=== PATIENT | female | born 2000 | race Caucasian/White ===

== ENCOUNTER → 2021-03-19 10:21 | Outpatient (CLI) | payer MEDICAID, SELFPAY ==
[2021-03-03 14:13] VITALS: BMI 35.7
--- NOTE | 2021-03-20 16:37 | PFTCOMP ---
COMPLETE PULMONARY FUNCTION TEST INTERPRETATION Brief HPI: Patient is a 20 year old female, currently under the care of Dr. Mcallister, who presents to [facility] for complete pulmonary function tests secondary to diagnosis of asthma. Respiratory therapist reports good effort and reproducible results. Interpretation: Forced expiration spirometry shows no large airways obstructive ventilatory defect with an FEV1 of 90% predicted. There is no significant bronchodilator response by strict ATS criteria. Spirograms are of good quality and plateau normally. The respiratory flow volume loop shows a normal pattern. Lung volumes by body plethysmography show a normal total lung capacity at 4.48 L, 90% predicted. All other lung volumes are within normal limits. Diffusion capacity by carbon monoxide is normal at 72% predicted. The airway resistance is normal. No previous pulmonary function tests were available for review. Impression: Normal complete PFT
== END ==
PROVIDERS: Referring Provider Internal Medicine Critical Care Medicine; Visit Provider Internal Medicine Critical Care Medicine
DX: J45.909 Unspecified asthma, uncomplicated (principal)
CPT/HCPCS: 94060; 94726; 94729

== ENCOUNTER 2021-07-02 06:19 | Emergency (ER) | payer MEDICAID, SELFPAY ==
[2021-04-16 07:34] VITALS: BMI 35.6
[2021-07-02 06:20] VITALS: BP 141/74; PULSE 91; RESP 14; TEMP 36.4; O2SAT 98; BMI 35.6
--- NOTE | 2021-07-02 06:45 | EDS_ITS ---
HPI History of Present Illness Chief Complaint: Eye Problem Informant: patient Onset/Context/Timing Location: Right Eye Onset: Days (3-day) Context: Gradual Onset Timing: Waxes and wanes Current Severity: Mild Maximum Severity: Moderate Associated Symptoms Associated Symptoms - Eyes: Itching Narrative Narrative: Patient presents secondary to right eye irritation for the past 3 days. She states it occasionally will feel itchy but just overall feels irritated. She denies vision change. She does not wear glasses or contacts. 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 She does wear safety glasses at work. She denies foreign body sensation. She did have some mild URI symptoms several days ago but those have been resolved during the time of her eye complaint. [facility] Medical History Asthma Home Medications albuterol sulfate 90 mcg/actuation aerosol inhaler 2 puff INHALATION Q4H PRN #8.5 gm 03/03/21 [Rx Last Taken Unknown] Allergy/AdvReac Type Severity Reaction Status Date / Time adhesive tape Allergy Unknown Verified 07/02/21 06:22 latex AdvReac Rash Verified 07/02/21 06:22 Penicillins AdvReac Rash Verified 07/02/21 06:22 Family History Mother Diabetes Hypertension Surgical History History of No pertinent past surgical history Social History Smoking Status: Never smoker ROS ROS ED Constitutional Constitutional ED: Denies chills or fever(s) Eyes Eyes: Reports other Details: Right eye irritation ; Denies change in vision ENT ENT ED: Denies sore throat Cardiovascular Cardiovascular: Denies chest pain Respiratory/Chest Respiratory/Chest: Denies cough or dyspnea Gastrointestinal Gastrointestinal: Denies abdominal pain, diarrhea, nausea or vomiting Musculoskeletal Musculoskeletal: Denies back pain Integumentary Denies rash Neurologic Neurologic: Denies headache(s) Psychiatric Psychiatric: Denies anxiety or depression Allergic/Immunologic Allergic/Immunologic ED: Denies urticaria EXAM Physical Exam Const Vital Signs: 07/02/21 06:20 Temperature 97.6 F L Temperature Source Temporal Pulse Rate 91 Respiratory Rate 14 Blood Pressure 141/74 H Blood Pressure Mean 96 Pulse Ox 98 Positive well nourished and well developed General Appearance ED: well developed Eyes General Eye ED: Yes normal light reflex Periorbital: periorbital findings normal Eyelid: eyelids normal Conjunctiva: other Other Details: Mild injection on the right. Pupil: PERRL Direct Ophthalmoscopy: normal light reflex Resp normal respiratory effort and clear to auscultation bilaterally Cardio regular rate and regular rhythm GI non-tender Palpation: soft Extremity normal to inspection Neuro oriented x3 Sensorium / Orientation: alert Skin Lesions: no lesions Rashes: no rashes MDM MDM Treatment and Re-Evaluation Comments:: Tetracaine drop was applied to the right eye and fluorescein. No dye uptake is noted. Patient does not have clinical signs of conjunctivitis. I believe she has irritation from frequent dust exposure but no abrasions are noted. Patient's eye will be irrigated and she be discharged home. She is referred to ophthalmology for follow-up as needed. Discharge Plan Triage Chief Complaint: Eye Problem ED Provider: Asia Marsh Dx/Rx/DC Orders Clinical Impression: Corneal irritation of right eye Instructions: Eye Protection at Work: First Aid Prescriptions: No Action albuterol sulfate 90 mcg/actuation HFA aerosol inhaler 2 puff INHALATION Q4H PRN (Reason: shortness of breath or wheezing) Qty: 8.5 RF: 3 Primary Care Provider: Care Physician,No Primary Referrals: Sadi Hyman MD [STAFF PHYSICIAN] - As Needed Care Physician,No Primary [Primary Care Provider] - Disposition Disposition: Home, Self Care
[2021-07-02] MEDS: Fluorescein 1 MG STRIP 1 STRIP RIGHT EYE (06:52)
[2021-07-02] MEDS: Tetracaine 0.5% Ophthalmic Bottle 1 DRP RIGHT EYE (06:53)
[2021-07-02 07:17] VITALS: BP 108/77; PULSE 62; RESP 15; O2SAT 98
== END 2021-07-02 07:20 | disposition home or self-care (01) ==
PROVIDERS: Emergency Provider Emergency Medicine
DX: H57.11 Ocular pain, right eye (principal); J45.909 Unspecified asthma, uncomplicated
CPT/HCPCS: 99283; A4216